=== PATIENT | female | born 1995 | race Two or more races ===

== ENCOUNTER → 2016-06-26 | Outpatient (CLI) | payer OTHER | END | disposition home or self-care (01) | LOC: LAB 09:14 | PROVIDERS: ATTEND Nurse Practitioner Family | DX: Z00.00 Encounter for general adult medical examination without abnormal findings (principal); N97.9 Female infertility, unspecified | CPT/HCPCS: 36415; 83001; 83002; 84443 ==

== ENCOUNTER 2018-02-19 07:51 | Outpatient (CLI) | payer BC ==
[~2018-02-19] VITALS: Ht 160 cm; Wt 99.0 kg
[2018-02-19 07:55] VITALS: BP 107/52
== END 2018-02-19 09:33 | disposition home or self-care (01) ==
LOC: LDOP 07:51
PROVIDERS: ATTEND Obstetrics & Gynecology
DX: O46.8X3 Other antepartum hemorrhage, third trimester (principal); Z3A.39 39 weeks gestation of pregnancy
CPT/HCPCS: 59025; 99201; G0463

== ENCOUNTER 2018-02-20 17:38 | Outpatient (CLI) | payer BC | END 2018-02-20 20:58 | disposition home or self-care (01) | LOC: LDOP 17:38 | PROVIDERS: ATTEND Obstetrics & Gynecology | DX: O26.893 Other specified pregnancy related conditions, third trimester (principal); R10.9 Unspecified abdominal pain; Z3A.39 39 weeks gestation of pregnancy | CPT/HCPCS: 59025; 76815; 84112; 99211; G0463 ==

== ENCOUNTER 2018-02-22 03:13 | Inpatient (IN) | payer BC ==
[~2018-02-22] VITALS: Ht 160 cm; Wt 99.5 kg
[2018-02-22] MEDS ORDERED: ONDANSETRON 2MG/ML, 2ML IVPush PRN (03:30)
[2018-02-22] MEDS ORDERED: TERBUTALINE 1 MG/ML, 1ML IVPush PRN (03:30)
[2018-02-22] MEDS ORDERED: SODIUM CITRATE/CITRIC ACID 30 ML UDC PO PRN (03:30)
[2018-02-22] MEDS ORDERED: D5%-LACTATED RINGERS 1,000 ML IV SCH (03:30)
[2018-02-22] MEDS ORDERED: FENTANYL PF 100 MCG/2ML IV PRN (03:30)
[2018-02-22] MEDS ORDERED: METOCLOPRAMIDE 5 MG/ML, 2ML IVPush PRN (03:30)
[2018-02-22] MEDS ORDERED: OXYTOCIN 30U/ 0.9% NaCL 500ML 500 ML IV ONE (03:30)
[2018-02-22] MEDS ORDERED: CALCIUM CARBONATE 500 MG TAB.CHEW PO PRN (03:30)
[2018-02-22] MEDS ORDERED: FENTANYL PF 100 MCG/2ML IVPush PRN (03:30)
[2018-02-22] MEDS: LACTATED RINGERS 1,000 ML IV SCH ×4 (03:44→20:37)
[2018-02-22] MEDS ORDERED: NEWBORN KIT ONE (03:46)
[2018-02-22] MEDS ORDERED: OXYTOCIN 30U/ 0.9% NaCL 500ML 500 ML ONE ×2 (03:47→19:50)
[2018-02-22] MEDS ORDERED: LIDOCAINE 2%, 20ML ONE (03:47)
[2018-02-22] MEDS ORDERED: MISOPROSTOL 200 MCG TABLET ONE ×2 (03:47→18:56)
[2018-02-22 03:53] LABS: BASOPHILS # (AUTO) 0.04 x10^3/uL (0-0.1); BASOPHILS % (AUTO) 0 % (0-1); EOSINOPHILS # (AUTO) 0.03 x10^3/uL (0-0.4); EOSINOPHILS % (AUTO) 0 % (1-7); LYMPHOCYTES # (AUTO) 1.65 x10^3/uL (1-3.4); LYMPHOCYTES % (AUTO) 11 % (22-44); MD NO; MEAN CORPUSCULAR HEMOGLOBIN 28.5 pg (27.0-34.8); MEAN CORPUSCULAR HGB CONC 33.7 g/dL (32.4-35.8); MEAN CORPUSCULAR VOLUME 84.4 fL (80-100); MEAN PLATELET VOLUME 8.9 fL (7.4-10.4); MONOCYTES # (AUTO) 0.81 x10^3/uL (0.2-0.8); MONOCYTES % (AUTO) 5 % (2-9); NEUTROPHILS # (AUTO) 12.92 x10^3/uL (1.8-6.8); NEUTROPHILS % (AUTO) 84 % (42-75); PLATELET COUNT 295 x10^3/uL (130-400); RED BLOOD COUNT 4.79 x10^6/uL (3.82-5.3); RED CELL DISTRIBUTION WIDTH 14.5 % (9.6-15.2)
[2018-02-22] MEDS ORDERED: FENTANYL PF 100 MCG/2ML ONE (06:58)
[2018-02-22] MEDS ORDERED: FENTANYL/BUPIV./NS/PF 250 ML EPIDCONT SCH (07:34)
[2018-02-22 07:41] VITALS: BP 121/78
[2018-02-22] MEDS ORDERED: FENTANYL PF 500 MCG, BUPIVACAINE/PF 0.5%, 30ML 62.5 ML in SODIUM CHLORIDE 0.9% 177.5 ML EPIDCONT SCH (08:00)
[2018-02-22] MEDS ORDERED: BUPIVACAINE 0.25% ONE (08:14)
[2018-02-22] MEDS ORDERED: ONDANSETRON 2MG/ML, 2ML ONE (09:55)
[2018-02-22] MEDS ORDERED: OXYTOCIN 30U/ 0.9% NaCL 500ML 500 ML IV PRN (10:30)
[2018-02-22] MEDS: CEFAZOLIN PMX 2GM/50ML 50 ML IVPB SCH (20:11)
[2018-02-22] MEDS: OXYTOCIN 30U/ 0.9% NaCL 500ML 500 ML IV SCH (20:50)
[2018-02-22] MEDS ORDERED: RHOGAM FROM BLOOD BANK 1 NOTE EA IM/IV ONE (21:00)
[2018-02-22] MEDS ORDERED: METOCLOPRAMIDE 5 MG/ML, 2ML IV PRN (21:00)
[2018-02-22] MEDS ORDERED: BISACODYL 10 MG SUPP PR PRN (21:00)
[2018-02-22 21:40] VITALS: BP 98/64
[2018-02-23 00:30] VITALS: BP 101/67
[2018-02-23] MEDS: OXYTOCIN 30U/ 0.9% NaCL 500ML 500 ML IV SCH ×5 (01:00→21:00)
[2018-02-23] MEDS ORDERED: MISOPROSTOL 200 MCG TABLET PR PRN (01:00)
[2018-02-23] MEDS ORDERED: DOCUSATE 100 MG CAPSULE PO PRN (01:00)
[2018-02-23] MEDS ORDERED: ONDANSETRON 2MG/ML, 2ML IV PRN (01:00)
[2018-02-23] MEDS ORDERED: HYDROcodone/APAP 5/325 TABLET PO PRN ×2 (01:00)
[2018-02-23] MEDS ORDERED: ACETAMINOPHEN 325 MG TABLET PO PRN (01:00)
[2018-02-23] MEDS ORDERED: METHYLERGONOVINE 0.2 MG/ML IM PRN (01:00)
[2018-02-23] MEDS ORDERED: OXYTOCIN 10 UNITS/ML, 1ML IM PRN (01:00)
[2018-02-23] MEDS ORDERED: IBUPROFEN 800 MG TABLET PO PRN (01:00)
[2018-02-23] MEDS ORDERED: CARBOPROST TROMETHAMINE 250 MCG/ML, 1ML IM PRN (01:00)
[2018-02-23] MEDS ORDERED: DIPH,PERTUSS(ACELL),TET VAC/PF NC IM-VACC ONE ×2 (02:16→02:30)
[2018-02-23 03:31] LABS: BASOPHILS # (AUTO) 0.07 x10^3/uL (0-0.1); BASOPHILS % (AUTO) 0 % (0-1); EOSINOPHILS # (AUTO) 0.04 x10^3/uL (0-0.4); EOSINOPHILS % (AUTO) 0 % (1-7); LYMPHOCYTES # (AUTO) 1.83 x10^3/uL (1-3.4); LYMPHOCYTES % (AUTO) 10 % (22-44); MD NO; MEAN CORPUSCULAR HEMOGLOBIN 28.3 pg (27.0-34.8); MEAN CORPUSCULAR HGB CONC 33.5 g/dL (32.4-35.8); MEAN CORPUSCULAR VOLUME 84.5 fL (80-100); MEAN PLATELET VOLUME 9.1 fL (7.4-10.4); MONOCYTES # (AUTO) 1.18 x10^3/uL (0.2-0.8); MONOCYTES % (AUTO) 7 % (2-9); NEUTROPHILS # (AUTO) 14.65 x10^3/uL (1.8-6.8); NEUTROPHILS % (AUTO) 82 % (42-75); PLATELET COUNT 262 x10^3/uL (130-400); RED BLOOD COUNT 4.45 x10^6/uL (3.82-5.3); RED CELL DISTRIBUTION WIDTH 14.8 % (9.6-15.2)
[2018-02-23] MEDS: CEFAZOLIN PMX 2GM/50ML 50 ML IVPB SCH (04:07)
[2018-02-23 04:10] VITALS: BP 95/61
[2018-02-23 08:00] VITALS: BP 105/72
[2018-02-23] MEDS: PRENATAL VIT/IRON/FA 1 EACH TABLET PO SCH (09:10)
[2018-02-23 16:37] VITALS: BP 105/72
[2018-02-23 21:00] VITALS: BP 107/67
[2018-02-24 07:57] VITALS: BP 97/67
[2018-02-24] MEDS: PRENATAL VIT/IRON/FA 1 EACH TABLET PO SCH (09:00)
[2018-02-24] MEDS ORDERED: IBUP-1222 PO (10:41)
[2018-02-24] MEDS ORDERED: DOCU-131 PO (10:41)
[2018-02-24] MEDS ORDERED: OXYC-302 PO (10:42)
== END 2018-02-24 12:10 | disposition home or self-care (01) | DRG 807 ==
LOC: LDOP 03:13 → LDIP 03:30 → 2NW 21:25
PROVIDERS: ADMIT Obstetrics & Gynecology; ATTEND Obstetrics & Gynecology
PROC: 10907ZC Drainage of Amniotic Fluid, Therapeutic from Products of Conception, Via Natural or Artificial Opening (ICD-10-PCS; principal; 2018-02-22)
PROC: 10E0XZZ Delivery of Products of Conception, External Approach (ICD-10-PCS; 2018-02-22)
PROC: 0KQM0ZZ Repair Perineum Muscle, Open Approach (ICD-10-PCS; 2018-02-22)
PROC: 3E0R3BZ Introduction of Anesthetic Agent into Spinal Canal, Percutaneous Approach (ICD-10-PCS; 2018-02-22)
PROC: 00HU33Z Insertion of Infusion Device into Spinal Canal, Percutaneous Approach (ICD-10-PCS; 2018-02-22)
DX: O77.0 Labor and delivery complicated by meconium in amniotic fluid (principal); Z37.0 Single live birth; Z3A.39 39 weeks gestation of pregnancy; O70.1 Second degree perineal laceration during delivery; O71.82 Other specified trauma to perineum and vulva; Z88.0 Allergy status to penicillin
CPT/HCPCS: 36415; 85025; 86850; 86900; 90715; G0378; J0690; J2405; J3010; J3490; J2590; J7050; J7120; J7121